=== PATIENT | male | born 1950 | race Caucasian/White ===

== ENCOUNTER 2020-09-25 16:20 | Emergency (ER) | payer MEDICARE, BC ==
[2020-09-25] MEDS ORDERED: Nitroglycerin 0.4 MG Tab.SL SL ONE (16:38)
[2020-09-25] MEDS ORDERED: Sodium Chloride 0.9% 10 ML Syringe FLUSH PRN (16:47)
[2020-09-25] MEDS ORDERED: Aspirin 81 MG Tab.Chew PO STA (16:49)
[2020-09-25] MEDS ORDERED: Iopamidol 755 Mg/ML 100 ML Bottle IV ONE (16:58)
[2020-09-25] MEDS ORDERED: Ketorolac 30 MG/ML SDV IVPUSH STA (17:47)
--- NOTE | 2020-09-25 19:28 | EDM.PDOC ---
ED HPI GENERAL MEDICAL PROBLEM - General Chief Complaint: Chest Pain Stated Complaint: CHEST PAIN Time Seen by Provider: 09/25/20 16:25 Source of Information: Reports: Patient History Limitations: Reports: No Limitations - History of Present Illness INITIAL COMMENTS - FREE TEXT/NARRATIVE: Patient presented to the ED because of chest pain over the sternal area,12/04. There is no N/V, diaphoresis or dyspnea. Midsternal chest Pain Score (Numeric/FACES): 4 - Related Data Allergies Allergy/AdvReac Type Severity Reaction Status Date / Time No Known Allergies Allergy Verified 09/25/20 16:35 Home Meds: Home Meds Mirtazapine 30 mg BEDTIME 09/25/20 [History] Vit A/Vit C/Vit E/Zinc/Copper [Preservision] 1 tab BID 09/25/20 [History] Zolpidem Tartrate [Ambien] 10 mg PO BEDTIME 09/25/20 [History] Past Medical History Cardiovascular History: Reports: Aneurysm Musculoskeletal History: Reports: Arthritis, Fracture Other Musculoskeletal History: hx fx L collar bone Psychiatric History: Reports: Anxiety, Depression Oncologic (Cancer) History: Reports: Basal Cell Carcinoma, Hodgkin's Lymphoma, Non-Hodgkin's Lymphoma - Infectious Disease History Infectious Disease History: Reports: Chicken Pox, Measles, Mumps - Past Surgical History HEENT Surgical History: Reports: Adenoidectomy, Tonsillectomy Cardiovascular Surgical History: Reports: None GI Surgical History: Reports: Appendectomy, Colonoscopy Musculoskeletal Surgical History: Reports: Shoulder Surgery Other Musculoskeletal Surgeries/Procedures:: L shoulder surgery Social & Family History - Family History Family Medical History: No Pertinent Family History - Tobacco Use Tobacco Use Status *Q: Former Tobacco User Years of Tobacco use: 10 Used Tobacco, but Quit: Yes Month/Year Tobacco Last Used: 1989 - Caffeine Use Caffeine Use: Reports: Soda - Alcohol Use Days Per Week of Alcohol Use: 1 Number of Drinks Per Day: 2 Total Drinks Per Week: 2 - Recreational Drug Use Recreational Drug Use: No ED ROS GENERAL - Review of Systems Review Of Systems: See Below Constitutional: Reports: No Symptoms HEENT: Reports: No Symptoms Respiratory: Reports: No Symptoms Cardiovascular: Reports: Chest Pain Endocrine: Reports: No Symptoms GI/Abdominal: Reports: No Symptoms : Reports: No Symptoms Musculoskeletal: Reports: No Symptoms Skin: Reports: No Symptoms ED EXAM, GENERAL - Physical Exam Exam: See Below Exam Limited By: No Limitations General Appearance: Alert, No Apparent Distress Eye Exam: Bilateral Eye: Proptosis Ears: Normal External Exam, Normal Canal Nose: Normal Inspection, Normal Mucosa Throat/Mouth: Normal Inspection, Normal Lips Head: Atraumatic, Normocephalic Neck: Normal Inspection Respiratory/Chest: No Respiratory Distress, Lungs Clear, Normal Breath Sounds Cardiovascular: Normal Peripheral Pulses, Regular Rate, Rhythm GI/Abdominal: Normal Bowel Sounds, Soft, Non-Tender Back Exam: Normal Inspection, Full Range of Motion Extremities: Normal Inspection, Normal Range of Motion Neurological: Alert, Oriented, CN II-XII Intact Psychiatric: Normal Affect, Normal Mood Course - Vital Signs Text/Narrative:: Labs/EKG/Chest CT was discussed with patient EKG-no acute changes Chest CT-neg ASA 324 mg po x1 NTG 0.4 SL x1 Toradol 15 mg IV x1 Last Recorded V/S: Last Vital Signs Temp 36.5 C 09/25/20 16:20 Pulse 84 09/25/20 16:20 Resp 18 09/25/20 16:20 BP 157/93 H 09/25/20 16:38 Pulse Ox 97 09/25/20 16:20 - Orders/Labs/Meds Orders: Active Orders 24 hr Category Date Time Status Ang Chest [CT] Stat Exams 09/25/20 16:47 Taken Saline Lock Insert [OM.PC] Routine Oth 09/25/20 16:47 Ordered EKG 12 Lead [EK] Routine Ther 09/25/20 16:47 Ordered Labs: Laboratory Tests 09/25/20 09/25/20 09/25/20 Range/Units 16:25 16:25 16:25 WBC 5.7 (3.2-10.1) x10-3/uL RBC 5.14 (3.90-5.90) x10(6)uL Hgb 15.8 (12.9-17.7) g/dL Hct 45.9 (38.3-50.1) % MCV 89.2 (80.8-98.7) fL MCH 30.6 (27.0-33.3) pg MCHC 34.3 (28.7-35.3) g/dL RDW 13.7 (12.4-15.0) % Plt Count 159 (117-477) x10(3)uL MPV 7.6 (6.7-11.0) fL Neut % (Auto) 51.2 (40.3-71.8) % Lymph % (Auto) 36.8 (15.8-45.3) % Weber % (Auto) 9.6 (5.5-15.2) % Eos % (Auto) 2.0 (0.1-6.8) % Baso % (Auto) 0.4 (0.3-3.8) % Neut # (Auto) 2.9 (1.7-6.9) x10-3/uL Lymph # (Auto) 2.1 (0.5-4.5) x10-3/uL Weber # (Auto) 0.5 (0.0-1.2) x10-3/uL Eos # (Auto) 0.1 (0.0-0.6) x10-3/uL Baso # (Auto) 0.0 (0.0-0.3) x10-3/uL D-Dimer, Quantitative 0.34 (0.0-0.59) mg/LFEU Sodium 141 (135-145) mmol/L Potassium 3.7 (3.5-5.3) mmol/L Chloride 104 (100-110) mmol/L Carbon Dioxide 26 (21-32) mmol/L BUN 16 (7-18) mg/dL Creatinine 0.9 (0.70-1.30) mg/dL Est Cr Clr Drug Dosing 81.11 mL/min Estimated GFR (MDRD) > 60 (>60) BUN/Creatinine Ratio 17.8 (9-20) Glucose 95 (80-116) mg/dL Calcium 8.8 (8.6-10.2) mg/dL Total Bilirubin 1.3 (0.1-1.3) mg/dL AST 22 (5-25) IU/L ALT 37 H (12-36) U/L Alkaline Phosphatase 110 (56-112) IU/L Troponin I (4.0-60.3) pg/mL NT-Pro-B Natriuret Pep (<=125) pg/mL Total Protein 7.4 (6.0-8.0) g/dL Albumin 4.2 (3.2-4.6) g/dL Globulin 3.2 g/dL Albumin/Globulin Ratio 1.3 09/25/20 Range/Units 16:25 WBC (3.2-10.1) x10-3/uL RBC (3.90-5.90) x10(6)uL Hgb (12.9-17.7) g/dL Hct (38.3-50.1) % MCV (80.8-98.7) fL MCH (27.0-33.3) pg MCHC (28.7-35.3) g/dL RDW (12.4-15.0) % Plt Count (117-477) x10(3)uL MPV (6.7-11.0) fL Neut % (Auto) (40.3-71.8) % Lymph % (Auto) (15.8-45.3) % Weber % (Auto) (5.5-15.2) % Eos % (Auto) (0.1-6.8) % Baso % (Auto) (0.3-3.8) % Neut # (Auto) (1.7-6.9) x10-3/uL Lymph # (Auto) (0.5-4.5) x10-3/uL Weber # (Auto) (0.0-1.2) x10-3/uL Eos # (Auto) (0.0-0.6) x10-3/uL Baso # (Auto) (0.0-0.3) x10-3/uL D-Dimer, Quantitative (0.0-0.59) mg/LFEU Sodium (135-145) mmol/L Potassium (3.5-5.3) mmol/L Chloride (100-110) mmol/L Carbon Dioxide (21-32) mmol/L BUN (7-18) mg/dL Creatinine (0.70-1.30) mg/dL Est Cr Clr Drug Dosing mL/min Estimated GFR (MDRD) (>60) BUN/Creatinine Ratio (9-20) Glucose (80-116) mg/dL Calcium (8.6-10.2) mg/dL Total Bilirubin (0.1-1.3) mg/dL AST (5-25) IU/L ALT (12-36) U/L Alkaline Phosphatase (56-112) IU/L Troponin I 44.3 (4.0-60.3) pg/mL NT-Pro-B Natriuret Pep 60 (<=125) pg/mL Total Protein (6.0-8.0) g/dL Albumin (3.2-4.6) g/dL Globulin g/dL Albumin/Globulin Ratio Meds: Medications Discontinued Medications Generic Name Dose Route Start Last Admin Trade Name Kartikq PRN Reason Stop Dose Admin Aspirin 324 mg 09/25/20 16:49 09/25/20 16:30 Aspirin PO 09/25/20 16:50 324 mg NOW STA Administration Iopamidol 80 ml 09/25/20 16:58 09/25/20 18:22 Isovue-370 (76%) IV 09/25/20 16:59 80 ml . DIRECTED ONE Administration Ketorolac Tromethamine 15 mg 09/25/20 17:47 09/25/20 17:53 Toradol IVPUSH 09/25/20 17:48 15 mg NOW STA Administration Nitroglycerin 0.4 mg 09/25/20 16:38 09/25/20 16:38 Nitrostat SL 09/25/20 16:39 0.4 mg ONETIME ONE Administration Sodium Chloride 10 ml 09/25/20 16:47 09/25/20 16:40 Saline Flush FLUSH 10 ml ASDIRECTED PRN Administration Keep Vein Open Departure - Departure Time of Disposition: 19:30 Disposition: Home, Self-Care 01 Condition: Good Clinical Impression: Chest pain, Thoracic aneurysm without mention of rupture Instructions: Nonspecific Chest Pain, Adult, Thoracic Aortic Aneurysm Referrals: PCP,None [Primary Care Provider] - Forms: ED Department Discharge Additional Instructions: Please read discharge instructions on aneurysm and chest pain You can take ibuprofen 600 mg with tylenol 500 mg every 4-6 hours as needed for pain Follow up as needed Sepsis Event Note (ED) - Evaluation Sepsis Screening Result: No Definite Risk - Focused Exam Vital Signs: Vital Signs Temp Pulse Resp BP BP Pulse Ox 09/25/20 16:38 157/93 H 09/25/20 16:20 36.5 C 84 18 151/84 H 97 - My Orders Last 24 Hours: My Active Orders 09/25/20 16:47 Ang Chest [CT] Stat Saline Lock Insert [OM.PC] Routine EKG 12 Lead [EK] Routine - Assessment/Plan Last 24 Hours: My Active Orders 09/25/20 16:47 Ang Chest [CT] Stat Saline Lock Insert [OM.PC] Routine EKG 12 Lead [EK] Routine
== END 2020-09-25 19:34 | disposition home or self-care (01) ==
LOC: FB.ED 16:20
DX: I71.2 Thoracic aortic aneurysm, without rupture (principal); F41.9 Anxiety disorder, unspecified; F32.9 Major depressive disorder, single episode, unspecified; Z87.891 Personal history of nicotine dependence; Z79.899 Other long term (current) drug therapy
CPT/HCPCS: 36415; 71275; 80053; 83880; 84484; 85025; 85379; 93005; 96374; 99285-25; A9270-GY; J1885; Q9967

== ENCOUNTER 2021-11-17 12:00 | Emergency (ER) | payer MEDICARE, BC ==
[2021-11-17] MEDS ORDERED: Aspirin 81 MG Tab.Chew PO ONE (12:17)
[2021-11-17] MEDS ORDERED: Sodium Chloride 0.9% 1,000 ML IV ONE ×2 (12:17→13:25)
[2021-11-17] MEDS ORDERED: Nitroglycerin 0.4 MG Tab.SL SL PRN (12:17)
[2021-11-17] MEDS ORDERED: Iopamidol 755 Mg/ML 75 ML Bottle IV ONE (13:30)
[2021-11-17] MEDS ORDERED: Heparin Sodium 5,000 Units/ML Vial ONE (14:09)
[2021-11-17] MEDS ORDERED: Heparin Sodium 5,000 Units/ML Vial IVPUSH ONE (14:10)
[2021-11-17] MEDS ORDERED: Atropine 0.1 MG/ML 10 ML Syringe IVPUSH ONE (15:41)
== END 2021-11-17 14:30 ==
LOC: FB.ED 12:00
DX: I20.0 Unstable angina (principal); E86.0 Dehydration; R94.31 Abnormal electrocardiogram [ECG] [EKG]; R00.1 Bradycardia, unspecified; I95.9 Hypotension, unspecified; R79.89 Other specified abnormal findings of blood chemistry; Z87.891 Personal history of nicotine dependence
CPT/HCPCS: 36415; 71045; 71275; 80053; 81001; 83735; 84484; 85025; 85379; 85610; 85730; 86140; 93005; 96374; 96375; 99285; A9270; J0461; J1644; J7030; Q9967